=== PATIENT | female | born 2000 | race Caucasian/White ===

== ENCOUNTER 2019-09-28 19:37 | Inpatient (IN) ==
[2019-09-28] MEDS ORDERED: *HR* LORazepam 2 MG/ML VIAL IM PRN (21:18)
[2019-09-28] MEDS ORDERED: QUEtiapine Fumarate 25 MG TABLET PO PRN (21:18)
[2019-09-28] MEDS ORDERED: Mag Hydrox/Al Hydrox/Simeth 30 ML UDC PO PRN (21:18)
[2019-09-28] MEDS ORDERED: Haloperidol Lactate 5 MG/ML VIAL IM PRN (21:18)
[2019-09-28] MEDS ORDERED: MOM Conc 10 ML UD.LIQ PO PRN (21:18)
[2019-09-28] MEDS ORDERED: Acetaminophen 325 MG TABLET PO PRN (21:18)
[2019-09-28] MEDS ORDERED: hydrOXYzine pamoate 25 MG CAPSULE PO PRN (21:18)
[2019-09-28] MEDS ORDERED: *HR* LORazepam 1 MG TABLET PO PRN (21:18)
[2019-09-29] MEDS: lamoTRIgine 25 MG TABLET PO SCH (21:09)
[2019-09-30] MEDS: lamoTRIgine 25 MG TABLET PO SCH (20:28)
[2019-10-01 09:13] VITALS: BP 135/88
== END 2019-10-01 16:45 | disposition home or self-care (01) | DRG 750 ==
LOC: EMEROOARM 19:37 → 1ANU 21:12 → SUATTDRO 21:12 → 1ANU 21:26
PROVIDERS: ADMIT Psychiatry & Neurology Psychiatry; ATTEND Psychiatry & Neurology Psychiatry

== ENCOUNTER 2019-11-16 17:30 | Observation (INO) ==
[2019-11-16] MEDS ORDERED: Ondansetron 4 MG/2 ML VIAL IVP PRN (21:37)
[2019-11-16] MEDS ORDERED: Acetaminophen 325 MG TABLET PO PRN (21:37)
[2019-11-16] MEDS ORDERED: Naloxone 0.4 MG/ML INJ IVP PRN (21:37)
[2019-11-16] MEDS ORDERED: Potassium Chloride 40 MEQ, Lidocaine 1% 2 ML in 0.9 % Sodium Chloride 500 ML IVPB ONE (21:40)
[2019-11-16] MEDS ORDERED: 0.9 % Sodium Chloride 1,000 ML IVC SCH (21:45)
[2019-11-16 22:19] LABS: BUN/Creatinine Ratio 11 (6-26); Blood Urea Nitrogen 6 mg/dL (6-20); Calcium 8.9 mg/dL (8.6-10.3); Carbon Dioxide 22 mEq/L (23-29); Chloride 106 mEq/L (98-107); Glucose 111 mg/dL (70-105); Osmolality,Calculated 280 (280-300); Potassium 3.7 mEq/L (3.5-5.1); Sodium 136 mEq/L (136-145); eGFR For African Americans > 60 (> 60); eGFR For Non-African Americans > 60 (> 60)
[2019-11-16] MEDS: *HR* Heparin 5,000 UNIT/ML VIAL SQ SCH (22:36)
[2019-11-17 03:03] LABS: Alanine Aminotransferase 6 Units/L (7-52); Albumin 3.8 g/dL (3.5-5.7); Albumin/Globulin Ratio 1.6 (1.1-2.2); Alkaline Phosphatase 32 Units/L (34-104); Aspartate Amino Transferase 14 Units/L (13-39); BUN/Creatinine Ratio 12 (6-26); Bilirubin,Total 1.1 mg/dL (0.3-1.0); Blood Urea Nitrogen 6 mg/dL (6-20); Calcium 8.6 mg/dL (8.6-10.3); Carbon Dioxide 23 mEq/L (23-29); Chloride 108 mEq/L (98-107); Globulin 2.4 g/dL (2.4-3.5); Glucose 88 mg/dL (70-105); Magnesium 1.8 mg/dL (1.6-2.6); Osmolality,Calculated 281 (280-300); Phosphorous 3.5 mg/dL (2.7-4.5); Potassium 4.1 mEq/L (3.5-5.1); Sodium 137 mEq/L (136-145); Total Protein 6.2 g/dL (6.4-8.9); eGFR For African Americans > 60 (> 60); eGFR For Non-African Americans > 60 (> 60)
[2019-11-17] MEDS: *HR* Heparin 5,000 UNIT/ML VIAL SQ SCH (04:55)
[2019-11-17 07:43] VITALS: BP 119/81
[2019-11-17] MEDS ORDERED: TRI LO SPRINTEC PO SCH (09:00)
== END 2019-11-17 14:30 ==
LOC: 3BNU
PROVIDERS: ADMIT Internal Medicine; ATTEND Internal Medicine

== ENCOUNTER 2019-11-17 14:55 | Inpatient (IN) ==
[2019-11-17] MEDS ORDERED: Acetaminophen 325 MG TABLET PO PRN (16:58)
[2019-11-17] MEDS ORDERED: Haloperidol Lactate 5 MG/ML VIAL IM PRN (16:58)
[2019-11-17] MEDS ORDERED: hydrOXYzine pamoate 25 MG CAPSULE PO PRN (16:58)
[2019-11-17] MEDS ORDERED: *HR* LORazepam 2 MG/ML VIAL IM PRN (16:58)
[2019-11-17] MEDS ORDERED: haloperidoL 5 MG TABLET PO PRN (16:58)
[2019-11-17] MEDS ORDERED: MOM Conc 10 ML UD.LIQ PO PRN (16:58)
[2019-11-17] MEDS ORDERED: Mag Hydrox/Al Hydrox/Simeth 30 ML UDC PO PRN (16:58)
[2019-11-17] MEDS ORDERED: *HR* LORazepam 1 MG TABLET PO PRN (16:58)
[2019-11-17] MEDS ORDERED: *HR* LORazepam 1 MG TABLET PO ONE (17:01)
[2019-11-17] MEDS ORDERED: Nicotine 2 MG GUM BC PRN (17:03)
[2019-11-18] MEDS: NORGESTIMATE ETHINYL ESTRADIOL PO SCH (08:55)
[2019-11-18] MEDS: Mirtazapine 15 MG TABLET PO SCH (20:54)
[2019-11-19] MEDS: NORGESTIMATE ETHINYL ESTRADIOL PO SCH (08:24)
[2019-11-19] MEDS: Mirtazapine 15 MG TABLET PO SCH (20:45)
[2019-11-20] MEDS: NORGESTIMATE ETHINYL ESTRADIOL PO SCH (08:34)
[2019-11-20 13:05] VITALS: BP 122/88
== END 2019-11-20 11:45 | disposition home or self-care (01) | DRG 750 ==
LOC: 1ANU 14:55
PROVIDERS: ADMIT Psychiatry & Neurology Psychiatry; ATTEND Psychiatry & Neurology Psychiatry

== ENCOUNTER 2020-06-02 02:17 | Inpatient (IN) ==
[2020-06-02] MEDS ORDERED: haloperidoL 5 MG TABLET PO PRN (03:43)
[2020-06-02] MEDS ORDERED: Acetaminophen 325 MG TABLET PO PRN (03:43)
[2020-06-02] MEDS ORDERED: Haloperidol Lactate 5 MG/ML VIAL IM PRN (03:43)
[2020-06-02] MEDS ORDERED: MOM Conc 10 ML UD.LIQ PO PRN (03:43)
[2020-06-02] MEDS ORDERED: *HR* LORazepam 1 MG TABLET PO PRN (03:43)
[2020-06-02] MEDS ORDERED: traZODone 50 MG TABLET PO PRN (03:43)
[2020-06-02] MEDS ORDERED: *HR* LORazepam 2 MG/ML VIAL IM PRN (03:43)
[2020-06-02] MEDS ORDERED: Nicotine 2 MG GUM BC PRN (05:55)
[2020-06-02] MEDS: BuPROPion XL (24 HR) 150 MG TABLET PO SCH (11:03)
[2020-06-02] MEDS ORDERED: hydrOXYzine pamoate 25 MG CAPSULE PO PRN (11:27)
[2020-06-03] MEDS: BuPROPion XL (24 HR) 150 MG TABLET PO SCH (08:42)
[2020-06-03 09:14] VITALS: BP 121/90
== END 2020-06-03 19:05 | disposition home or self-care (01) | DRG 817 ==
LOC: EMEROOARM 02:17 → 1ANU 03:41
PROVIDERS: ADMIT Psychiatry & Neurology Psychiatry; ATTEND Psychiatry & Neurology Psychiatry

== ENCOUNTER 2020-08-07 19:00 | Inpatient (IN) ==
[2020-08-07] MEDS ORDERED: Thiamine (B-1) 100 MG in 0.9 % Sodium Chloride 50 ML IVPB ONE (21:19)
[2020-08-07] MEDS ORDERED: diazePAM 5 MG TABLET PO ONE (21:19)
[2020-08-07] MEDS ORDERED: Naloxone 0.4 MG/ML INJ IVP PRN (22:30)
[2020-08-07] MEDS ORDERED: *HR* LORazepam 2 MG/ML VIAL IVP PRN ×2 (22:31)
[2020-08-08] MEDS: 0.9 % Sodium Chloride 1,000 ML IVC SCH ×2 (00:43→10:28)
[2020-08-08 07:34] LABS: Hematocrit 34.7 % (35.3-44.9); Mean Corpuscular HGB Conc 31.7 g/dL (31.6-35.5); Mean Corpuscular Volume 85.3 fL (83.0-100.0); Mean Platelet Volume 10.1 fL (9.4-12.4); Platelet Count 270 K/mcL (140-400); Red Blood Count 4.07 M/mcL (3.82-4.97); Red Cell Distribution Width 13.6 % (11.5-14.5); White Blood Count 4.9 K/mcL (4.3-11.1)
[2020-08-08] MEDS: Folic Acid 1 MG TABLET PO SCH (07:57)
[2020-08-08] MEDS: Thiamine (B-1) 100 MG TABLET PO SCH (07:57)
[2020-08-08 07:58] LABS: BUN/Creatinine Ratio 16 (6-26); Blood Urea Nitrogen 9 mg/dL (6-20); Calcium 8.7 mg/dL (8.6-10.3); Carbon Dioxide 24 mEq/L (23-29); Chloride 107 mEq/L (98-107); Glucose 87 mg/dL (70-105); Magnesium 1.9 mg/dL (1.6-2.6); Osmolality,Calculated 284 (280-300); Phosphorous 3.3 mg/dL (2.7-4.5); Potassium 3.5 mEq/L (3.5-5.1); Sodium 138 mEq/L (136-145); eGFR For African Americans > 60 (> 60); eGFR For Non-African Americans > 60 (> 60)
[2020-08-08 07:59] LABS: Ethanol < 10 mg/dL (Less than 10)
[2020-08-08 08:07] LABS: Thyroid Stimulating Hormone 6.226 mcIU/mL (0.340-5.600)
[2020-08-08 09:40] LABS: Triiodothyronine (T3) Free 3.92 pg/mL (2.50-3.90)
[2020-08-08] MEDS: BuPROPion XL (24 HR) 150 MG TABLET PO SCH (12:50)
[2020-08-08] MEDS ORDERED: *HR* LORazepam 2 MG/ML VIAL IVP ONE (13:01)
[2020-08-08] MEDS ORDERED: QUEtiapine Fumarate 100 MG TABLET PO SCH (21:00)
[2020-08-09 04:01] LABS: Basophils % 0.7 %; Eosinophils # 0.3 K/mcL (0.0-0.6); Eosinophils % 5.9 %; Hematocrit 36.2 % (35.3-44.9); Hemoglobin 11.2 g/dL (11.5-15.4); Lymphocytes # 1.6 K/mcL (0.6-4.6); Lymphocytes % 35.3 %; Mean Corpuscular HGB Conc 30.9 g/dL (31.6-35.5); Mean Corpuscular Hemoglobin 26.4 pg (28.0-33.3); Mean Corpuscular Volume 85.2 fL (83.0-100.0); Mean Platelet Volume 10.2 fL (9.4-12.4); Monocytes # 0.4 K/mcL (0.0-1.3); Monocytes % 8.1 %; Neutrophils # 2.3 K/mcL (1.6-8.9); Platelet Count 273 K/mcL (140-400); Red Blood Count 4.25 M/mcL (3.82-4.97); Red Cell Distribution Width 13.5 % (11.5-14.5); White Blood Count 4.6 K/mcL (4.3-11.1)
[2020-08-09 04:19] LABS: BUN/Creatinine Ratio 13 (6-26); Blood Urea Nitrogen 7 mg/dL (6-20); Calcium 9.1 mg/dL (8.6-10.3); Carbon Dioxide 24 mEq/L (23-29); Chloride 106 mEq/L (98-107); Glucose 107 mg/dL (70-105); Osmolality,Calculated 282 (280-300); Potassium 3.9 mEq/L (3.5-5.1); Sodium 137 mEq/L (136-145); eGFR For African Americans > 60 (> 60); eGFR For Non-African Americans > 60 (> 60)
[2020-08-09] MEDS ORDERED: Multivit/Ca/Min/Fe/FA 1 TAB TABLET PO SCH (09:00)
[2020-08-09] MEDS: Thiamine (B-1) 100 MG TABLET PO SCH (09:26)
[2020-08-09] MEDS: Folic Acid 1 MG TABLET PO SCH (09:26)
[2020-08-09] MEDS: BuPROPion XL (24 HR) 150 MG TABLET PO SCH (09:26)
[2020-08-09 10:17] VITALS: BP 130/100
== END 2020-08-09 10:55 | DRG 775 ==
LOC: EMEROOARM 19:00 → 3ANU 19:00
PROVIDERS: ADMIT Internal Medicine; ATTEND Internal Medicine

== ENCOUNTER 2020-08-09 10:45 | Inpatient (IN) ==
[2020-08-09] MEDS ORDERED: haloperidoL 5 MG TABLET PO PRN (11:32)
[2020-08-09] MEDS ORDERED: Mag Hydrox/Al Hydrox/Simeth 30 ML UDC PO PRN (11:32)
[2020-08-09] MEDS ORDERED: MOM Conc 10 ML UD.LIQ PO PRN (11:32)
[2020-08-09] MEDS ORDERED: Haloperidol Lactate 5 MG/ML VIAL IM PRN (11:32)
[2020-08-09] MEDS ORDERED: *HR* LORazepam 1 MG TABLET PO PRN (11:32)
[2020-08-09] MEDS ORDERED: traZODone 50 MG TABLET PO PRN (11:32)
[2020-08-09] MEDS ORDERED: *HR* LORazepam 2 MG/ML VIAL IM PRN (11:32)
[2020-08-09] MEDS: hydrOXYzine pamoate 25 MG CAPSULE PO PRN ×2 (14:37→21:03)
[2020-08-09] MEDS: Nicotine 2 MG GUM BC PRN (20:16)
[2020-08-09] MEDS: QUEtiapine Fumarate 100 MG TABLET PO SCH (20:16)
[2020-08-09] MEDS ORDERED: *HR* LORazepam 1 MG TABLET PO ONE (22:20)
[2020-08-10] MEDS: BuPROPion XL (24 HR) 150 MG TABLET PO SCH (09:40)
[2020-08-10] MEDS: Folic Acid 1 MG TABLET PO SCH (09:41)
[2020-08-10] MEDS: Thiamine (B-1) 100 MG TABLET PO SCH (09:41)
[2020-08-10] MEDS: Multivit/Ca/Min/Fe/FA 1 TAB TABLET PO SCH (09:42)
[2020-08-10] MEDS: Acetaminophen 325 MG TABLET PO PRN (15:57)
[2020-08-10] MEDS ORDERED: *HR* LORazepam 1 MG TABLET PO ONE ×2 (17:51→20:23)
[2020-08-10] MEDS ORDERED: *HR* LORazepam 1 MG TABLET PO SCH (20:30)
[2020-08-10] MEDS ORDERED: QUEtiapine Fumarate 100 MG TABLET PO SCH (21:00)
[2020-08-10] MEDS: QUEtiapine Fumarate 100 MG TABLET PO SCH (21:03)
[2020-08-10] MEDS ORDERED: diazePAM 2 MG TABLET PO STA (23:48)
[2020-08-11] MEDS ORDERED: diazePAM 5 MG TABLET PO PRN ×3 (00:55→01:00)
[2020-08-11] MEDS ORDERED: diazePAM 10 MG TABLET PO PRN (00:58)
[2020-08-11] MEDS: Thiamine (B-1) 100 MG TABLET PO SCH (09:21)
[2020-08-11] MEDS: BuPROPion XL (24 HR) 150 MG TABLET PO SCH (09:22)
[2020-08-11] MEDS: Multivit/Ca/Min/Fe/FA 1 TAB TABLET PO SCH (09:22)
[2020-08-11] MEDS: Folic Acid 1 MG TABLET PO SCH (09:22)
[2020-08-11] MEDS: Nicotine 2 MG GUM BC PRN (12:04)
[2020-08-11] MEDS ORDERED: cloNIDine HCL 0.1 MG TABLET PO ONE (16:46)
[2020-08-11] MEDS: diazePAM 5 MG TABLET PO PRN ×2 (18:23→22:25)
[2020-08-11] MEDS: OLANZapine 10 MG TAB.RAPDIS PO SCH (20:18)
[2020-08-12] MEDS ORDERED: NORGESTIMATE PO SCH (09:00)
[2020-08-12] MEDS ORDERED: ETHINYL ESTRADIOL PO SCH (09:00)
[2020-08-12] MEDS: Multivit/Ca/Min/Fe/FA 1 TAB TABLET PO SCH (09:18)
[2020-08-12] MEDS: Folic Acid 1 MG TABLET PO SCH (09:18)
[2020-08-12] MEDS: BuPROPion XL (24 HR) 150 MG TABLET PO SCH (09:19)
[2020-08-12] MEDS: Thiamine (B-1) 100 MG TABLET PO SCH (09:19)
[2020-08-12] MEDS: hydrOXYzine pamoate 25 MG CAPSULE PO PRN (09:19)
[2020-08-12] MEDS ORDERED: BuPROPion XL (24 HR) 150 MG TABLET PO ONE (10:30)
[2020-08-12] MEDS: diazePAM 5 MG TABLET PO PRN (11:10)
[2020-08-12] MEDS: Acetaminophen 325 MG TABLET PO PRN (16:08)
[2020-08-12] MEDS: OLANZapine 10 MG TAB.RAPDIS PO SCH (21:51)
[2020-08-13] MEDS ORDERED: Levothyroxine 25 MCG TABLET PO SCH (06:30)
[2020-08-13] MEDS ORDERED: BuPROPion XL (24 HR) 150 MG TABLET PO SCH (09:00)
[2020-08-13] MEDS: Thiamine (B-1) 100 MG TABLET PO SCH (09:50)
[2020-08-13] MEDS: Multivit/Ca/Min/Fe/FA 1 TAB TABLET PO SCH (09:50)
[2020-08-13] MEDS: Folic Acid 1 MG TABLET PO SCH (10:03)
[2020-08-13 16:08] VITALS: BP 140/99
== END 2020-08-13 19:00 | disposition home or self-care (01) | DRG 750 ==
LOC: 1ANU 10:45
PROVIDERS: ADMIT Psychiatry & Neurology Psychiatry; ATTEND Psychiatry & Neurology Psychiatry

== ENCOUNTER 2020-12-01 15:59 | Observation (INO) ==
[2020-12-01] MEDS ORDERED: haloperidoL 5 MG TABLET PO PRN (16:44)
[2020-12-01] MEDS ORDERED: MOM Conc 10 ML UD.LIQ PO PRN (16:44)
[2020-12-01] MEDS ORDERED: traZODone 50 MG TABLET PO PRN (16:44)
[2020-12-01] MEDS ORDERED: Acetaminophen 325 MG TABLET PO PRN (16:44)
[2020-12-01] MEDS ORDERED: Haloperidol Lactate 5 MG/ML VIAL IM PRN (16:44)
[2020-12-01] MEDS ORDERED: Mag Hydrox/Al Hydrox/Simeth 30 ML UDC PO PRN (16:44)
[2020-12-01] MEDS ORDERED: *HR* LORazepam 1 MG TABLET PO PRN (16:44)
[2020-12-01] MEDS ORDERED: *HR* LORazepam 2 MG/ML VIAL IM PRN (16:44)
[2020-12-01] MEDS ORDERED: hydrOXYzine pamoate 25 MG CAPSULE PO PRN (16:44)
[2020-12-01] MEDS ORDERED: Nicotine 7 MG PATCH.TD24 TD SCH (17:00)
[2020-12-01] MEDS ORDERED: Nicotine 2 MG GUM BC PRN (17:01)
[2020-12-01] MEDS ORDERED: OLANZapine 10 MG TAB.RAPDIS PO SCH (21:00)
[2020-12-02 09:40] VITALS: BP 89/65
[2021-01-04] MEDS ORDERED: Patient Taking Own Medication 1 EACH IM SCH (09:00)
== END 2020-12-02 14:20 | disposition home or self-care (01) ==
LOC: INTOOBSV 15:59 → 1ANU 15:59
PROVIDERS: ADMIT Psychiatry & Neurology Psychiatry; ATTEND Psychiatry & Neurology Psychiatry

== ENCOUNTER 2021-02-11 17:51 | Inpatient (IN) ==
[2021-02-11 20:25] LABS: Basophils % 0.4 %; Hematocrit 34.1 % (35.3-44.9); Hemoglobin 10.6 g/dL (11.5-15.4); Immature Granulocytes % 0.3 % (0-4); Lymphocytes # 0.6 K/mcL (0.6-4.6); Lymphocytes % 8.6 %; Mean Corpuscular HGB Conc 31.1 g/dL (31.6-35.5); Mean Corpuscular Hemoglobin 25.3 pg (28.0-33.3); Mean Corpuscular Volume 81.4 fL (83.0-100.0); Mean Platelet Volume 10.5 fL (9.4-12.4); Monocytes # 0.2 K/mcL (0.0-1.3); Monocytes % 2.2 %; Neutrophils # 6.6 K/mcL (1.6-8.9); Platelet Count 232 K/mcL (140-400); Red Blood Count 4.19 M/mcL (3.82-4.97); Segmented Neutrophils % 88.5 %; White Blood Count 7.4 K/mcL (4.3-11.1)
[2021-02-11 20:31] LABS: Bacteria,Urine Few per hpf (None-Few); Bilirubin,Urine Negative (Negative); Blood,Urine Negative (Negative); Clarity,Urine Clear (Clear); Color,Urine Light-Yellow (Yellow); Glucose,Urine (UA) Normal (Normal); Ketones,Urine 60 mg/dL (Negative); Leukocyte Esterase,Urine Negative (Negative); Mucus,Urine Few per lpf (None-Few); Nitrite,Urine Negative (Negative); PH,Urine 5.5 pH Units (5.0-8.0); Protein,Urine 30 mg/dL (Neg-Trace); RBC,Urine 0-3 per hpf (0-3); Specific Gravity,Urine 1.022 (1.010-1.025); Squamous Epithelial Cell,Urine Few per hpf (None-Few); Urobilinogen,Urine Normal (Normal)
[2021-02-11 20:36] LABS: Amphetamine Screen,Urine Negative ng/mL (Cutoff=1000); Barbiturate Screen,Urine Negative ng/mL (Cutoff=200); Benzodiazepines Screen,Urine Negative ng/mL (Cutoff=200); Cannabinoid Screen,Urine Negative ng/mL (Cutoff = 50); Cocaine Screen,Urine Negative ng/mL (Cutoff= 300); Opiate Screen,Urine Negative ng/mL (Cutoff=300); Phencyclidine Screen,Urine Negative ng/mL (Cutoff=25)
[2021-02-11 21:20] LABS: Influenza A PCR Negative (Negative); Influenza B PCR Negative (Negative); Resp. Syncytial Virus PCR Negative (Negative)
[2021-02-11 21:50] LABS: SARS-CoV-2 by PCR (In House) Negative (Negative)
[2021-02-11 22:32] LABS: Acetaminophen < 10 mcg/mL (10-20); Alanine Aminotransferase 7 Units/L (7-52); Albumin 4.5 g/dL (3.5-5.7); Albumin/Globulin Ratio 1.6 (1.1-2.2); Alkaline Phosphatase 52 Units/L (34-104); Aspartate Amino Transferase 16 Units/L (13-39); BUN/Creatinine Ratio 18 (6-26); Bilirubin,Direct 0.2 mg/dL (0.0-0.2); Bilirubin,Indirect 1.5 mg/dL (0.0-1.0); Bilirubin,Total 1.7 mg/dL (0.3-1.0); Blood Urea Nitrogen 11 mg/dL (6-20); Calcium 9.4 mg/dL (8.6-10.3); Carbon Dioxide 24 mEq/L (23-29); Chloride 104 mEq/L (98-107); Ethanol < 10 mg/dL (Less than 10); Globulin 2.8 g/dL (2.4-3.5); Glucose 104 mg/dL (70-105); Osmolality,Calculated 282 (280-300); Potassium 4.4 mEq/L (3.5-5.1); Salicylate < 2.5 mg/dL (15.0-30.0); Sodium 136 mEq/L (136-145); Total Protein 7.3 g/dL (6.4-8.9); eGFR For African Americans > 60 (> 60); eGFR For Non-African Americans > 60 (> 60)
[2021-02-11] MEDS ORDERED: traZODone 50 MG TABLET PO PRN (23:41)
[2021-02-11] MEDS ORDERED: Acetaminophen 325 MG TABLET PO PRN (23:41)
[2021-02-11] MEDS ORDERED: *HR* LORazepam 2 MG/ML VIAL IM PRN (23:41)
[2021-02-11] MEDS ORDERED: hydrOXYzine pamoate 25 MG CAPSULE PO PRN (23:41)
[2021-02-11] MEDS ORDERED: *HR* LORazepam 1 MG TABLET PO PRN (23:41)
[2021-02-11] MEDS ORDERED: haloperidoL 5 MG TABLET PO PRN (23:41)
[2021-02-11] MEDS ORDERED: Haloperidol Lactate 5 MG/ML VIAL IM PRN (23:41)
[2021-02-12] MEDS: lamoTRIgine 25 MG TABLET PO SCH (21:46)
[2021-02-13] MEDS: lamoTRIgine 25 MG TABLET PO SCH (21:25)
[2021-02-14] MEDS ORDERED: ARIPIPRAZOLE LAUROXIL IM ONE ×2 (13:15→15:00)
[2021-02-14] MEDS: lamoTRIgine 25 MG TABLET PO SCH (20:42)
[2021-02-15] MEDS: lamoTRIgine 25 MG TABLET PO SCH (21:16)
[2021-02-16] MEDS ORDERED: ARIPIPRAZOLE LAUROXIL IM SCH (09:00)
[2021-02-16] MEDS: lamoTRIgine 25 MG TABLET PO SCH (20:51)
[2021-02-17 09:09] VITALS: BP 116/84
== END 2021-02-17 18:35 | disposition home or self-care (01) | DRG 817 ==
LOC: EMEROOARM 17:51 → 1ANU 23:39
PROVIDERS: ADMIT Psychiatry & Neurology Forensic Psychiatry; ATTEND Psychiatry & Neurology Forensic Psychiatry